=== PATIENT | male | born 1980 | race Caucasian/White ===

== ENCOUNTER → 2016-10-12 | Outpatient (CLI) | payer MEDICARE ==
[2016-10-12 15:46] LABS: CHCM 33.6; HCT 48.7 % (39.0-53.0); HDW 2.83; HGB 16.3 gm/dL (13.0-17.5); MCHC 33.5 g/dL (31.0-37.0); MCV 83.6 fL (80.0-100.0); Mean Platelet Volume 6.6; RBC 5.82 m/uL (4.30-5.90); RDW 12.9 % (11.5-15.5); WBC 7.5 k/uL (3.8-10.6)
[2016-10-12 15:54] LABS: Anion Gap 14 mmol/L; Blood Urea Nitrogen 15 mg/dL (9-20); Carbon Dioxide 28 mmol/L (22-30); Chloride 101 mmol/L (98-107); Non-African American GFR(MDRD) >60 (>60 ml/min/1.73 sqM); Potassium 4.1 mmol/L (3.5-5.1); Sodium 143 mmol/L (137-145)
== END | disposition home or self-care (01) ==
LOC: LABPAT 15:12
PROVIDERS: ATTEND Internal Medicine Endocrinology, Diabetes & Metabolism
DX: Z01.812 Encounter for preprocedural laboratory examination (principal); R07.2 Precordial pain
CPT/HCPCS: 80051; 82565; 84520; 85027

== ENCOUNTER → 2019-01-25 | Outpatient (CLI) | payer MEDICARE ==
--- NOTE | 2019-01-25 12:30 | CONS ---
CONSULTATION DATE OF SERVICE: 01/25/2019 A 38-year-old gentleman had been in the sleep center for possible obstructive sleep apnea-hypopnea syndrome. HISTORY OF PRESENT ILLNESS/SLEEP-WAKE EVALUATION: Patient usual sleep schedule on weekdays from 9 to 10 p.m. until 7 to 8:30 a.m. On weekend, he sleeps from around 11 to 12 midnight until 9, 10 or 11 a.m. He does have problem with falling asleep. He has TV set in bedroom. Usually sleeps on the side position. According to his , he has loud snoring, witnessed episodes of stopped breathing during the sleep. He sometimes has episodes of awakenings with gasping for air, sweating and panic attacks. Totally he wakes up from sleep up to 3 times with one episode of nocturia. He has history of sleep talking. No history of sleepwalking. No any significant movements during the night. Sometimes patient starting to see dreams right away after falling asleep. No history of sleep paralysis or cataplexy. PAST MEDICAL HISTORY: Positive for arachnoiditis, hypertension, back problems. SOCIAL HISTORY: Negative for smoking or using alcohol. MEDICATIONS: Dana, hydrochlorothiazide. PAST SURGICAL HISTORY: Laminectomy in 2015 at low back level. FAMILY HISTORY: Hypertension, heart problems, arthritis, snoring, diabetes. REVIEW OF SYSTEMS: Awakenings from sleep, pain in the back. PHYSICAL EXAMINATION: During physical exam, a gentleman without distress. VITAL SIGNS: BP 142/85, HR 80, RR 16, height 5 feet 10 inches, weight 248 pounds, body mass index 35.5, temperature 98.5, oxygen saturation at room air 97%. HEENT: PERRLA, EOMI. Oropharynx extremely low position of soft palate. Mallampati 4. Some restriction of nasal breathing. Wide neck 18 inches in circumference. NECK: Supple, no JVD. Thyroid is not palpable. LUNGS: Clear to percussion and to auscultation. Good air exchange. No wheezing or rhonchi. HEART: S1, S2 regular. No murmurs, gallops, or rubs. ABDOMEN: Obese. EXTREMITIES: No clubbing or cyanosis. SENIOR OFFICE SUPPORT ASSISTANT SOSA: Awake, alert, and oriented X3. Cranial nerves 2 to 7 intact. There is no fasciculation or atrophy. noted. No focal deficits observed. IMPRESSION: 1. Loud snoring, witnessed episodes of stopped breathing during the sleep, extremely low position of soft palate, Mallampati 4, wide neck 18 inches in circumference, awakenings from sleep, obstructive sleep apnea-hypopnea syndrome. 2. Obesity, body mass index 35.5. 3. Hypertension. 4. History of arachnoiditis. 5. Back pain. 6. Status post laminectomy in low back level in 2015. PLAN: 1. Polysomnography for evaluation of patient's breathing during sleep. 2. CPAP/BiPAP titration if sleep study confirms obstructive sleep apnea-hypopnea syndrome. 3. Preferable position during sleep on the side. 4. No driving if patient feels any sleepiness. 5. I will see patient for follow up visit to explain results of testing and following plan. Thank you very much for referring this patient for consultation. Sincerely, Oneil Garcia MD, PhD, FAASM Diplomat of [employer] Psychology Professor of [facility] [place] MMODL / IJN: [id number] /
== END ==
LOC: SLEEP 11:17
PROVIDERS: ATTEND Internal Medicine
DX: G47.33 Obstructive sleep apnea (adult) (pediatric) (principal); E66.9 Obesity, unspecified; I10 Essential (primary) hypertension; M54.9 Dorsalgia, unspecified; Z86.61 Personal history of infections of the central nervous system; Z68.35 Body mass index [BMI] 35.0-35.9, adult; Z99.89 Dependence on other enabling machines and devices; Z98.890 Other specified postprocedural states; Z79.899 Other long term (current) drug therapy; Z79.891 Long term (current) use of opiate analgesic
CPT/HCPCS: 99211